=== PATIENT | female | born 1945 | race Caucasian/White ===

== ENCOUNTER 2019-04-07 04:39 | Inpatient (IN) | payer MEDICARE, OTHER ==
[2019-04-07] VITALS (28 sets, daily range): BP systolic 76–129; BP diastolic 33–63; BMI 32.5
[~2019-04-07] VITALS: Ht 170.2 cm; Wt 99.5 kg
--- NOTE | 2019-04-07 04:40 | NUR ---
PT TO E-10. PT VERY SOB, DIAPHORETIC. RECEIVING DUONEB. SL TO LEFT AC INTACT-20G. PT VERY SOB. ABG'S CALLED FOR.
--- NOTE | 2019-04-07 05:05 | NUR ---
PT MOVED TO T3. SET UP FOR INTUBATION.
--- NOTE | 2019-04-07 05:20 | NUR ---
PT PREPARED TO INTUBATE PER DR. DAVIDSON. R/T AT BEDSIDE.
[2019-04-07 05:30] LABS: BASOPHILS 0.3 % (0-2); EOSINOPHILS 2.2 % (0-7); HEMATOCRIT 43.3 % (36.0-48.0); HEMOGLOBIN 12.9 g/dL (12-16); IMMATURE GRANULOCYTES 0.3 % (0-5); LYMPHOCYTES 21.1 % (15-50); MCH 25.8 pg (26.0-34.0); MCHC 29.8 g/dL (31.0-37.0); MCV 86.6 fL (80.0-100.0); MEAN PLATELET VOLUME 11.2 fL (7.4-10.4); MONOCYTES 7.1 % (2-11); PLATELET COUNT 345 10x3/uL (130-400); RDW 18.2 % (11.5-14.5); WBC 14.9 10x3/uL (4.8-10.8)
--- NOTE | 2019-04-07 05:30 | NUR ---
PT INTUBATED PER DR. DAVIDSON WITH 7.5 E.T TUBE. POSITIVE COLOR CHANGE. GOOD BREATH SOUNDS BILATERALLY. CXR OBTAINED.
--- NOTE | 2019-04-07 05:35 | NUR ---
PT BEGINNING TO MOVE AND TRY TO PULL LINES. ORDER FOR NON-VIOLENT RESTRAINTS RECEIVED AND BILATERAL SOFT WRIST RESTRAINTS APPLIED. FLOW SHEET BEGAN.
[2019-04-07 05:44] LABS: CALC OSMOLALITY 296 mosm/kg (275-300); CALCIUM 8.6 mg/dL (8.5-10.1); CARBON DIOXIDE 25.6 mmol/L (21.0-32.0); CHLORIDE - SERUM 109 mmol/L (98-107); CREATININE - SERUM 0.8 mg/dL (0.6-1.3); GLUCOSE 282 mg/dL (74-106); POTASSIUM - SERUM 4.5 mmol/L (3.5-5.1); SODIUM 142 mmol/L (136-145); UREA NITROGEN 23 mg/dL (7-18); eGFR NON AFRICAN AMERICAN 74 mL/min (90-120)
[2019-04-07 05:46] LABS: APTT 31.9 SECONDS (22.8-39.4); INR 1.06 (0.85-1.17); PROTIME 13.3 SECONDS (11.6-15.0)
--- NOTE | 2019-04-07 05:50 | NUR ---
PT GIVEN 1LITER BOLUS FOR HYPOTENSION.
--- NOTE | 2019-04-07 05:50 | NUR ---
MOVED ETT FROM 23 CM AT LIP TO 25 CM AT LIP PER LETY ORDER
[2019-04-07 05:58] LABS: ALBUMIN 3.1 g/dL (3.4-5.0); ALKALINE PHOSPHATASE 123 U/L (46-116); ALT (SGPT) 84 U/L (10-68); BILIRUBIN - TOTAL 0.73 mg/dL (0.2-1.3); CKMB 1.8 U/L (0.0-3.6); CREATINE KINASE 114 UL (21-215); PRO BNP 1778 pg/mL (0-125); PROTEIN - SERUM 7.1 g/dL (6.4-8.2); TROPONIN-I 0.027 ng/mL (0.000-0.060)
--- NOTE | 2019-04-07 06:10 | NUR ---
PT MOVING AND FIGHTING TUBE. ETOMIDATE ORDERED PER DR DAVIDSON- GIVEN.
--- NOTE | 2019-04-07 06:40 | NUR ---
PT STILL MOVING SOME AND FIGHTING TUBE. FENTANYL 25MCG GIVEN. PT HAS DIPRIVAN INFUSING AT 10MCG/KG/MIN.
--- NOTE | 2019-04-07 06:40 | NUR ---
DENTURES AND HOUSESHOES TO GRANDDAUGHTER.
--- NOTE | 2019-04-07 07:16 | NUR ---
REPORT TO DWAIN PENNINGTON RN.
--- NOTE | 2019-04-07 08:00 | NUR ---
received from ER PER STRETCHER. AWAKE AND ALERT OBEYING COMMANDS. ETT SECURE TO VENT. SKIN WARM AND DRY. DIPRIVAN GTT AT 10 MCG/KG/MIN PER RIGHT FOREARM NO REDNESS OR SWELLING NOTED. MONITOR SR. DENIES PAIN. LEFT AC SALINE LOCK IV. TURNER CATH PATENT DRAINING CLOUDY YELLOW URINE.
--- NOTE | 2019-04-07 09:00 | NUR ---
OG INSERTED WITHOUT DIFFICULTY PATIENT SWALLOWED AND ASSISTED WITH INSERTION. AIR BOLUS AUDIBLE IN ABD. TOLERATED WELL. TO LOW INTERMITTENT SUCTION. NS STARTED IN LEFT AC IV. NO SWELLING OR REDNESS NOTED. ALERT OBEYING COMMANDS. FAMILY HERE UPDATE GIVEN.
[2019-04-07 09:28] LABS: % SATURATION 9 % (15-55); IRON 37 ug/dl (35-150); TOTAL IRON BIND CAPACITY 372 ug/dl (260-445); UNSAT IRON BIND CAPACITY 335 ug/dl (150-375)
[2019-04-07] MEDS ORDERED: FUROSEMIDE40 MG PO (09:30)
[2019-04-07] MEDS ORDERED: COREG 3.1253.125 MG PO (09:31)
[2019-04-07] MEDS ORDERED: TOUJEO SOL300 UNIT/1 SC (09:31)
[2019-04-07] MEDS ORDERED: VIBRAMYCIN 100100 MG PO (09:32)
[2019-04-07] MEDS ORDERED: K-TAB10 MEQ PO (09:34)
[2019-04-07] MEDS ORDERED: ENTRESTO 49 MG1 EACH PO (09:35)
[2019-04-07] MEDS ORDERED: BAYER CHEWABLE81 MG PO (09:36)
[2019-04-07] MEDS ORDERED: ALENDRONATE SODI5 MG PO (09:36)
[2019-04-07] MEDS ORDERED: LIPITOR10 MG PO (09:37)
[2019-04-07] MEDS ORDERED: VITAMIN D5000 UNIT PO (09:37)
[2019-04-07] MEDS ORDERED: FARXIGA10 MG PO (09:38)
[2019-04-07] MEDS ORDERED: PEPCID AC20 MG PO (09:38)
[2019-04-07] MEDS ORDERED: FISH OIL 1,0001 CA1 PO (09:39)
[2019-04-07] MEDS ORDERED: MIRALAX17 GM PO (09:42)
[2019-04-07] MEDS ORDERED: SINGULAIR10 MG PO (09:42)
--- NOTE | 2019-04-07 10:00 | NUR ---
REPOSITIONED IN BED. PATIENT HELPING WITH TURNING SELF TO SIDE.
--- NOTE | 2019-04-07 11:30 | NUR ---
DR. CASTILLO HERE AND DR. SIDDIQI. ORDERS NOTED. CALLED RICKI AT HOME OBTAINED PHONE CONSENT FOR BRONCHOSCOPY.QUESTIONS ANSWERED. TALKED WITH DR. CASTILLO ON THE PHONE.
--- NOTE | 2019-04-07 12:00 | NUR ---
BRONCHOSCOPY PERFORMED PER DR. CASTILLO. PATIENT TOLERATED WELL NO DISTRESS. VITAL SIGNS STABLE. FAMILY HERE UPDATE GIVEN PER DR. CASTILLO
--- NOTE | 2019-04-07 13:00 | NUR ---
REPOSITONED IN BED. HEAD OF BED ELEVATED. INCREASING FENTANYL TO ALLOW PATIENT TO BE ABLE TO REST. ETT GAUGING PATIENT MAKES HER FELL LIKE SHE NEEDS TO COUGH. PATIENT COOPERATIVE. WRITING NOTES, AND LETTERS ON HER HAND TO COMMUNICATE.
--- NOTE | 2019-04-07 14:00 | NUR ---
NAPPING AT INTERVALS RESTING MORE COMFORTABLE. AWAKES EASILY. NO DISTRESS
[2019-04-07 14:04] LABS: APPEARANCE CLEAR (CLEAR); BILIRUBIN NEGATIVE (NEGATIVE); COLOR YELLOW (YELLOW); GLUCOSE 1000 mg/dL (NEGATIVE); KETONE NEGATIVE (NEGATIVE); NITRITE NEGATIVE (NEGATIVE); PROTEIN NEGATIVE (NEGATIVE); UROBILINOGEN NORMAL (NORMAL); WHITE CELLS - URINE 0-5 /hpf (NEGATIVE)
[2019-04-07 14:05] LABS: BACTERIA FEW /hpf (NEGATIVE); MUCUS <1+ /lpf (NONE SEEN)
--- NOTE | 2019-04-07 15:00 | NUR ---
REPOSITIONED. RETURNS TO SLEEP EASILY. HELPED TURNED SELF TO SIDE. NODES HEAD TO YES AND NO QUESTIONS. MONITOR SR.
--- NOTE | 2019-04-07 17:30 | NUR ---
REPOSITIONED. PATIENT TURNING SELF. ALERT ABLE TO MAKE NEEDS KNOWN. FAMILY HERE UPDATE GIVEN. FENTANYL AT 200 MCG/HOUR. NS AT 50 ML HOUR PER LEFT AC NO REDNESS OR SWELLING. TURNER CATH PATENT. MONITOR SR. NO DISTRESS. GOOD COUGH. SUCTIONED LARGE AMOUNT CLEAR SECRETIONS PER ETT AND ORALLY.
[2019-04-08] VITALS (24 sets, daily range): BP systolic 105–139; BP diastolic 48–63; Ht 170.2 cm; Wt 99.5 kg
[2019-04-08 04:22] LABS: BASOPHILS 0.1 % (0-2); EOSINOPHILS 0 % (0-7); IMMATURE GRANULOCYTES 0.1 % (0-5); LYMPHOCYTES 9.3 % (15-50); MCH 25.1 pg (26.0-34.0); MCHC 29.4 g/dL (31.0-37.0); MCV 85.3 fL (80.0-100.0); MEAN PLATELET VOLUME 11.4 fL (7.4-10.4); MONOCYTES 3.8 % (2-11); NEUTROPHILS 86.7 % (40-80); RDW 17.8 % (11.5-14.5)
[2019-04-08 04:36] LABS: HEMATOCRIT 33.7 % (36.0-48.0); HEMOGLOBIN 9.9 g/dL (12-16); PLATELET COUNT 240 10x3/uL (130-400); RBC 3.95 10x6/uL (4.00-5.40); WBC 7.7 10x3/uL (4.8-10.8)
[2019-04-08 05:11] LABS: ALBUMIN 2.5 g/dL (3.4-5.0); ANION GAP 11.1 mmol/L (8-16); BILIRUBIN - TOTAL 0.76 mg/dL (0.2-1.3); CALCIUM 8.1 mg/dL (8.5-10.1); MAGNESIUM - SERUM 1.8 mg/dL (1.8-2.4); PHOSPHOROUS 3.6 mg/dL (2.5-4.9); POTASSIUM - SERUM 4.1 mmol/L (3.5-5.1); PROTEIN - SERUM 5.6 g/dL (6.4-8.2)
[2019-04-08 05:12] LABS: TROPONIN-I 1.731 ng/mL (0.000-0.060)
--- NOTE | 2019-04-08 05:15 | NUR ---
PT STATES THAT SHE WANTS TO WAIT TO GET HER BATH DURING THE DAY WITH A FEMALE NURSE.
--- NOTE | 2019-04-08 07:30 | NUR ---
REPORT RECEIVED. ASSESSMENT COMPLETE PER FLOW SHEET. PT AWAKE COMFORTABLE AT THIS TIME, ORAL CARE PROVIDED PER REQUEST. FAMILY AT BEDSIDE UPDATE GIVEN. NEEDS MET WILL CONTINUE TO MONITOR
--- NOTE | 2019-04-08 11:15 | NUR ---
REASSESSMENT COMPLETE PER FLOW SHEET. VSS. NO NEW CHANGES WILL CONTINUE TO MONITOR
--- NOTE | 2019-04-08 11:58 | NUR ---
DR CASTILLO AT BEDSIDE GIVEN UDPATE NEW ORDERS RECEIVED
--- NOTE | 2019-04-08 15:00 | NUR ---
REASSESSMENT COMPLETE PER FLOW SHEET. VSS. NO NEW CHANGES WILL CONTINUE TO MONITOR
--- NOTE | 2019-04-08 18:46 | MORECARE ---
CASE MANAGEMENT DISCHARGE SUMMARY PATIENT: JACINDA HARPER UNIT: [id number] ADM DATE: 04/07/19 AGE: 74 : 45 SEX: F ROOM/BED: D.2307 AUTHOR: CORY LISA PHYSICIAN: REFERRING PHYSICIAN: YULY SIDDIQI MD DATE OF SERVICE: 04/08/19 Discharge Plan Patient Name: JACINDA HARPER Facility: [facility]:[place] : 1945 Planned Disposition: Home Anticipated Discharge Date: Discharge Date: Expected LOS: Initial Reviewer: [email or web address] Initial Review Date: 04/08/2019 Generated: 04/08/19 7:46 pm Patient Name: JACINDA HARPER Page 07483 at 1846 All edits/amendments must be made on the electronic document DICTATION DATE: 04/08/191845 SYNTHETIC SOIL BLOCKS PULPER: LISA 04/08/191845 RPT#: [id number] [place] DATE: STATUS: ADM IN [facility] [address] [place] [address] END OF REPORT
--- NOTE | 2019-04-08 18:54 | MORECARE ---
CASE MANAGEMENT DISCHARGE SUMMARY PATIENT: JACINDA HARPER UNIT: [id number] ADM DATE: 04/07/19 AGE: 74 : 45 SEX: F ROOM/BED: D.2307 AUTHOR: MARIA L,DOC PHYSICIAN: REFERRING PHYSICIAN: YULY SIDDIQI MD DATE OF SERVICE: 04/08/19 Discharge Plan Patient Name: JACINDA HARPER Facility: [facility]:[place] : 1945 Planned Disposition: Home Anticipated Discharge Date: Discharge Date: Expected LOS: Initial Reviewer: [email or web address] Initial Review Date: 04/08/2019 Generated: 04/08/19 7:54 pm Comments DCP- Discharge Planning Updated by [email or web address]: Valentine Dickson on 04/08/19 5:[address] Patient Name: JACINDA HARPER Admission Status: Elective Accout number: [id number] Admission Date: 04-07-2019 : 1945 Admission Diagnosis: Attending: YULY SIDDIQI Current LOS: 1 Anticipated DC Date: Planned Disposition: Home Primary Insurance: MEDICARE A & B Discharge Planning Comments: CM met with patient to complete initial dc planning assessment. CM educated patient on the CM role and verbal consent given by patient to complete assessment. Patient lives at home with her where she is independent with her care. At discharge patient plans to return home and feels this is a safe discharge. CM discussed availability of home health, rehab services, and medical equipment. Her daughter will be her airport driver home. Patient has a nebulizer ( can't remember provider) Patient denied known discharge needs at this time. CM will continue to follow and will assist as needed with dc plans/needs. Bookstore Clerk: Valentine Dickson DCPIA - Discharge Planning Initial Assessment Updated by [email or web address]: Valentine Dickson on 04/08/19 6:48 pm * Is the patient Alert and Oriented? Yes * How many steps to enter\exit or inside your home? * PCP KWASI * Pharmacy [facility] * Preadmission Environment Home with Family * ADLs Independent * Equipment Nebulizer * List name and contact numbers for known caregivers / representatives who currently or will assist patient after discharge: ECHO HARPER - DAUGHTER - [phone], * Verbal permission to speak to the caregivers and representatives has been obtained from the patient. Yes * Community resources currently utilized None * Additional services required to return to the preadmission environment? No * Can the patient safely return to the preadmission environment? Yes * Has this patient been hospitalized within the prior 30 days at any hospital? No Last DP export: 04/08/19 5:46 Patient Name: JACINDA HARPER Page [phone] at 1854 All edits/amendments must be made on the electronic document DICTATION DATE: 04/08/191853 BUILD AND RELEASE MANAGER: LISA 04/08/191853 RPT#: [id number] MT DATE: STATUS: ADM IN [facility] [address] [place] [address] END OF REPORT
--- NOTE | 2019-04-08 19:15 | NUR ---
REPORT RECEIEVED, PT SITTING UP IN BED, AAOX4. PT ON 2L O2 VIA NC, TURNER IN PLACE. LT AC PIV, RT FOREARM PIV, SEE FLOWSHEET. ASSESSMENT COMPLETED, SEE FLOWSHEET. WILL CONTINUE WITH PLAN OF CARE.
--- NOTE | 2019-04-08 21:00 | NUR ---
PT SITTING UP IN BED, NO ACUTE DISTRESS NOTED.
--- NOTE | 2019-04-08 23:00 | NUR ---
PT SITTING UP IN BED, AAOX4. VITALS STABLE, WILL CONTINUE TO MONITOR.
[2019-04-09] VITALS (15 sets, daily range): BP systolic 97–148; BP diastolic 43–71
--- NOTE | 2019-04-09 01:00 | NUR ---
PT LAYING IN BED, NO NEEDS VOICED AT THIS TIME.
--- NOTE | 2019-04-09 03:00 | NUR ---
PT REPOSITIONED TO LEFT SIDE. VITALS STABLE.
[2019-04-09 04:26] LABS: BASOPHILS 0 % (0-2); EOSINOPHILS 0 % (0-7); HEMATOCRIT 32.5 % (36.0-48.0); HEMOGLOBIN 9.6 g/dL (12-16); IMMATURE GRANULOCYTES 0.4 % (0-5); LYMPHOCYTES 8.2 % (15-50); MCH 25.2 pg (26.0-34.0); MCHC 29.5 g/dL (31.0-37.0); MCV 85.3 fL (80.0-100.0); NEUTROPHILS 80.4 % (40-80); PLATELET COUNT 235 10x3/uL (130-400); RBC 3.81 10x6/uL (4.00-5.40); RDW 18.3 % (11.5-14.5); WBC 8.4 10x3/uL (4.8-10.8)
--- NOTE | 2019-04-09 05:00 | NUR ---
PT SITTING UP IN CHAIR, FULL LINEN CHANGE AND BATH GIVEN.
[2019-04-09 05:01] LABS: ALBUMIN 2.6 g/dL (3.4-5.0); ANION GAP 11.4 mmol/L (8-16); BILIRUBIN - TOTAL 0.73 mg/dL (0.2-1.3); CALCIUM 8.3 mg/dL (8.5-10.1); CARBON DIOXIDE 25.3 mmol/L (21.0-32.0); CREATININE - SERUM 0.8 mg/dL (0.6-1.3); POTASSIUM - SERUM 3.7 mmol/L (3.5-5.1); PROTEIN - SERUM 5.9 g/dL (6.4-8.2)
[2019-04-09 05:11] LABS: TROPONIN-I 0.905 ng/mL (0.000-0.060)
--- NOTE | 2019-04-09 07:00 | NUR ---
REPORT RECEIVED FROM THE OFF GOING RN. SEE ASSESSMENT IN THE PT FLOW SHEET. PT SITTING OOB IN THE BEDSIDE CHAIR. 2L VIA NC. VSS. CALL LIGHT IN REACH. WILL CONT POC.
--- NOTE | 2019-04-09 08:30 | NUR ---
DR JEN MAURICIO. FULL LIQUID DIET ORDERED.
--- NOTE | 2019-04-09 10:36 | NUR ---
PT ASSISTED TO THE BSC AND HAD A LARGE FORMED BM. PT PERFORMED SELF PERICARE. WILL CONT POC.
--- NOTE | 2019-04-09 12:23 | NUR ---
DR CASTILLO AND DR LI AT THE PTS BEDSIDE. SEE ORDERS.
--- NOTE | 2019-04-09 12:55 | NUR ---
REGULAR TEXTURE TRAY ORDERED PER DR LI
--- NOTE | 2019-04-09 15:00 | NUR ---
PHSSANGEETHA THEANN AT THE PTS BEDSIDE. ASSISTED HER BACK INTO BED. VSS. WILL CONT POC.
[2019-04-09 16:08] LABS: ACID FAST SMEAR Negative (()); AFB SPECIMEN PROCESSING Concentration (())
--- NOTE | 2019-04-09 19:00 | NUR ---
SHIFT ASSESSMENT COMPLETE. PT IS A&O X4 WITH NO COMPLAINTS OF PAIN OR DISCOMFORT AT THIS TIME. SHE IS SITTING UP IN BED WATCHING TV. PERRLA, 3 MM, BRISK REACTION TO LIGHT, STRONG AND EQUAL HAND TELEMARKETING FUNDRAISER AND FOOT PUMPS. RR EVEN AND UNLABORED, 2 L/MIN VIA NC, CLEAR BREATH SOUNDS HEARD BILAT ALL LOBES. S1S2 AUDIBLE, HR 90 BPM NSR SHOWING ON MONITOR. TIGHT PARAMETERS SET ON ICU MONITORS. ABD SOFT AND NONTENDER TO TOUCH, BS ACTIVE X4. R FA PIV INFUSING NS @ 50 ML/HR. TURNER CATH DRAINING CLEAR YELLOW URINE. SCDS ON AND FUNCTIONING. RADIAL AND PEDAL PULSES PALP. CALL LIGHT IN REACH, REMOVED DINNER TRAY PER REQUEST. NO FURTHER NEEDS AT THIS TIME. WILL CONT TO MONITOR CLOSELY. SEE FLOWSHEET FOR FURTHER DETAILS.
--- NOTE | 2019-04-09 21:00 | NUR ---
FSBS 312, 12 UN INSULIN ADMIN PER SLIDING SCALE. REPOSITIONED FOR COMFORT. PM MEDS GIVEN WITHOUT DIFFICUTLY. SHE DENIES ANY NEEDS AT THIS TIME. WILL CONT TO MONITOR CLOSELY.
--- NOTE | 2019-04-09 23:30 | NUR ---
PT WOKE UP IN A PANIC. SHE STATES THAT SHE WAS WRAPPED IN THE MONITOR CORDS AND GOT EXTREMELY ANXIOIUS. ASSISTED PT TO CHAIR, GAIT STEADY, SHE IS IN GOOD SPIRITS AT THIS TIME AND PLAYING A GAME ON HER TABLET. VSS. CALL LIGHT IN REACH, WILL CONT TO MONITOR CLOSELY.
--- NOTE | 2019-04-10 01:27 | NUR ---
PATIENT ARRIVED FROM THE ICU. PATIENT TRANSPORTED VIA WHEELCHAIR. PATIENT IS ALERT AND ORIENTED, SITTING UP IN CHAIR. NO S/S OF DISTRESS. NO C/O PAIN. CALL LIGHT WITHIN REACH. WILL CPOC.
[2019-04-10 04:31] VITALS: BP 98/47
[2019-04-10 05:11] LABS: BASOPHILS 0.2 % (0-2); EOSINOPHILS 0.6 % (0-7); HEMATOCRIT 32.3 % (36.0-48.0); HEMOGLOBIN 9.6 g/dL (12-16); IMMATURE GRANULOCYTES 0.2 % (0-5); LYMPHOCYTES 13.6 % (15-50); MCH 25.3 pg (26.0-34.0); MCHC 29.7 g/dL (31.0-37.0); MCV 85.2 fL (80.0-100.0); MEAN PLATELET VOLUME 10.9 fL (7.4-10.4); MONOCYTES 9.9 % (2-11); NEUTROPHILS 75.5 % (40-80); PLATELET COUNT 242 10x3/uL (130-400); RBC 3.79 10x6/uL (4.00-5.40); RDW 18.4 % (11.5-14.5); WBC 10.3 10x3/uL (4.8-10.8)
[2019-04-10 05:32] LABS: CALC OSMOLALITY 286 mosm/kg (275-300); CALCIUM 8.6 mg/dL (8.5-10.1); CHLORIDE - SERUM 110 mmol/L (98-107); CREATININE - SERUM 0.7 mg/dL (0.6-1.3); GLUCOSE 63 mg/dL (74-106); MAGNESIUM - SERUM 2.1 mg/dL (1.8-2.4); PHOSPHOROUS 2.2 mg/dL (2.5-4.9); POTASSIUM - SERUM 3.5 mmol/L (3.5-5.1); SODIUM 143 mmol/L (136-145); UREA NITROGEN 24 mg/dL (7-18); eGFR NON AFRICAN AMERICAN 87 mL/min (90-120)
[2019-04-10 08:00] VITALS: BP 108/37
--- NOTE | 2019-04-10 08:09 | MORECARE ---
CASE MANAGEMENT DISCHARGE SUMMARY PATIENT: JACINDA HARPER UNIT: [id number] ADM DATE: 04/07/19 AGE: 74 : 45 SEX: F ROOM/BED: D.9306 AUTHOR: MARIA LDOC PHYSICIAN: REFERRING PHYSICIAN: YULY SIDDIQI MD DATE OF SERVICE: 04/10/19 Discharge Plan Patient Name: JACINDA HARPER Facility: [facility]:[place] : 1945 Planned Disposition: Home Anticipated Discharge Date: Discharge Date: Expected LOS: Initial Reviewer: [email or web address] Initial Review Date: 04/08/2019 Generated: 04/10/19 9:09 am Comments DCP- Discharge Planning Updated by [email or web address]: Valentine Dickson on 04/08/19 5:[address] Patient Name: JACINDA HARPER Admission Status: Elective Accout number: [id number] Admission Date: 04-07-2019 : 1945 Admission Diagnosis: Attending: YULY SIDDIQI Current LOS: 1 Anticipated DC Date: Planned Disposition: Home Primary Insurance: MEDICARE A & B Discharge Planning Comments: CM met with patient to complete initial dc planning assessment. CM educated patient on the CM role and verbal consent given by patient to complete assessment. Patient lives at home with her where she is independent with her care. At discharge patient plans to return home and feels this is a safe discharge. CM discussed availability of home health, rehab services, and medical equipment. Her daughter will be her grab driver home. Patient has a nebulizer ( can't remember provider) Patient denied known discharge needs at this time. CM will continue to follow and will assist as needed with dc plans/needs. Floor Scraper: Valentine Dickson DCPIA - Discharge Planning Initial Assessment Updated by [email or web address]: Valentine Dickson on 04/08/19 6:48 pm * Is the patient Alert and Oriented? Yes * How many steps to enter\exit or inside your home? * PCP V[facility]ALPANDO * [facility]acy [facility] * Preadmission Environment Home with Family * ADLs Independent * Equipment Nebulizer * List name and contact numbers for known caregivers / representatives who currently or will assist patient after discharge: ECHO HARPER - DAUGHTER - [phone], * Verbal permission to speak to the caregivers and representatives has been obtained from the patient. Yes * Community resources currently utilized None * Additional services required to return to the preadmission environment? No * Can the patient safely return to the preadmission environment? Yes * Has this patient been hospitalized within the prior 30 days at any hospital? No Last DP export: 04/08/19 5:54 Patient Name: JACINDA HARPER Page [phone] at 0809 All edits/amendments must be made on the electronic document DICTATION DATE: 04/10/19808 WOOL MIXER: LISA 04/10/19808 RPT#: [id number] DC DATE: STATUS: ADM IN [facility] [address] [place] [address] END OF REPORT
--- NOTE | 2019-04-10 08:40 | NUR ---
IV RESTARTED TO RIGHT WRIST BY ALYSSA DIAZ AND FLUSHED WITH NS. LINE IS PATENT.
--- NOTE | 2019-04-10 09:28 | NUR ---
UP AMBULATING WITH PT ASSIST.
[2019-04-10 12:00] VITALS: BP 122/43
[2019-04-10 12:09] LABS: FUNGUS STAIN Final report (())
--- NOTE | 2019-04-10 13:45 | NUR ---
Nutrition Follow-up: Transferred from ICU. Eating lunch at time of visit. Reports good appetite and that she ate majority of breakfast this AM. Diet: Diabetic with Glucerna Wt: 216# Last BM: 04/09 Labs noted: Glu 63, PO4 2.2 Meds noted: Prednisone, Humulin, KDur, NS @ 50, Lasix -May consider cardiac diabetic diet. -RD following.
[2019-04-10 16:00] VITALS: BP 107/40
[2019-04-10 20:21] VITALS: BP 97/39
[2019-04-11 00:13] VITALS: BP 111/39
--- NOTE | 2019-04-11 01:50 | NUR ---
PIV INFILTRATED. RESTARTED A NEW PIV ON L.HAND 20G X1 STICK. IV VANC INFUSING. WILL CPOC.
[2019-04-11 04:45] VITALS: BP 116/47
[2019-04-11 05:09] LABS: BASOPHILS 0.1 % (0-2); EOSINOPHILS 0.7 % (0-7); HEMATOCRIT 32.4 % (36.0-48.0); HEMOGLOBIN 9.6 g/dL (12-16); IMMATURE GRANULOCYTES 0.2 % (0-5); LYMPHOCYTES 14.2 % (15-50); MCH 25.1 pg (26.0-34.0); MCHC 29.6 g/dL (31.0-37.0); MCV 84.8 fL (80.0-100.0); MEAN PLATELET VOLUME 11.6 fL (7.4-10.4); NEUTROPHILS 71.8 % (40-80); PLATELET COUNT 250 10x3/uL (130-400); RBC 3.82 10x6/uL (4.00-5.40); WBC 9.1 10x3/uL (4.8-10.8)
[2019-04-11 05:21] LABS: CALC OSMOLALITY 286 mosm/kg (275-300); CALCIUM 8.4 mg/dL (8.5-10.1); CARBON DIOXIDE 28.2 mmol/L (21.0-32.0); CHLORIDE - SERUM 106 mmol/L (98-107); CREATININE - SERUM 0.7 mg/dL (0.6-1.3); PHOSPHOROUS 2.1 mg/dL (2.5-4.9); POTASSIUM - SERUM 3.6 mmol/L (3.5-5.1); SODIUM 140 mmol/L (136-145); UREA NITROGEN 19 mg/dL (7-18); eGFR NON AFRICAN AMERICAN 87 mL/min (90-120)
[2019-04-11 05:22] LABS: GLUCOSE 209 mg/dL (74-106)
--- NOTE | 2019-04-11 07:51 | NUR ---
ALERT AND ORIENTED. UP IN BEDSIDE CHAIR. TELEMERTY SHOWS SR. 89. IV ON NS AT 50 IFUSING INTO LEFT HAND. TURNER CATH PATENT TO GRAVITY BAG. DENIES ANY NEEDS.CALL LIGHT IN REACH. WILL MONITOR
[2019-04-11 09:36] VITALS: BP 117/46
--- NOTE | 2019-04-11 09:41 | NUR ---
I have reviewed this patient and I concur with the Shift Assessment completed by the Licensed Practical Nurse today this shift.
[2019-04-11 13:17] VITALS: BP 126/49
--- NOTE | 2019-04-11 14:12 | NUR ---
TURNER REMOVED WITHOUT DIFFICULTY. PT UP TO BR. NO NEEDS VOICED. WILL MONITOR
--- NOTE | 2019-04-11 16:03 | MORECARE ---
CASE MANAGEMENT DISCHARGE SUMMARY PATIENT: JACINDA HARPER UNIT: [id number] ADM DATE: 04/07/19 AGE: 74 : 45 SEX: F ROOM/BED: D.3643 AUTHOR: MARIA LDOC PHYSICIAN: REFERRING PHYSICIAN: YULY SIDDIQI MD DATE OF SERVICE: 04/11/19 Discharge Plan Patient Name: JACINDA HARPER Facility: [facility]:[place] : 1945 Planned Disposition: Home Anticipated Discharge Date: Discharge Date: Expected LOS: Initial Reviewer: [email or web address] Initial Review Date: 04/08/2019 Generated: 04/11/19 5:03 pm Comments DCP- Discharge Planning Updated by [email or web address]: Darnell Stewart on 04/11/19 2:[address] Patient Name: JACINDA HARPER Encounter No: [id number] : 1945 Primary Insurance: MEDICARE A & B Anticipated DC Date: Planned Disposition: Home : DCP follow-up note: CM RECEIVED OXYGEN TESTING, PT WAS 96% ON ROOM AIR AT REST, 95% ON ROOM AIR DURING EXERTION. PT DID NOT QUALIFY FOR HOME AND PORTABLE OXYGEN. PT PLANS TO DISCHARGE HOME WITH SPOUSE WITH NO ANTICIPATED NEEDS AT THIS TIME. CM TO FOLLOW AND ASSIST NEEDED. MANDI Sánchez DCP- Discharge Planning Updated by [email or web address]: Valentine Dickson on 04/08/19 5:[address] Patient Name: JACINDA HARPER Admission Status: Elective Accout number: [id number] Admission Date: 04-07-2019 : 1945 Admission Diagnosis: Attending: YULY SIDDIQI Current LOS: 1 Anticipated DC Date: Planned Disposition: Home Primary Insurance: MEDICARE A & B Discharge Planning Comments: CM met with patient to complete initial dc planning assessment. CM educated patient on the CM role and verbal consent given by patient to complete assessment. Patient lives at home with her where she is independent with her care. At discharge patient plans to return home and feels this is a safe discharge. CM discussed availability of home health, rehab services, and medical equipment. Her daughter will be her chuck wagon driver home. Patient has a nebulizer ( can't remember provider) Patient denied known discharge needs at this time. CM will continue to follow and will assist as needed with dc plans/needs. Line Service Attendant: Valentine Dickson DCPIA - Discharge Planning Initial Assessment Updated by [email or web address]: Valentine Dickson on 04/08/19 6:48 pm * Is the patient Alert and Oriented? Yes * How many steps to enter\exit or inside your home? * PCP [facility]O * Pharmacy [facility] * Preadmission Environment Home with Family * ADLs Independent * Equipment Nebulizer * List name and contact numbers for known caregivers / representatives who currently or will assist patient after discharge: ECHO HARPER - DAUGHTER - [phone], * Verbal permission to speak to the caregivers and representatives has been obtained from the patient. Yes * Community resources currently utilized None * Additional services required to return to the preadmission environment? No * Can the patient safely return to the preadmission environment? Yes * Has this patient been hospitalized within the prior 30 days at any hospital? No Last DP export: 04/10/19 7:09 Patient Name: JACINDA HARPER Page [phone] at 1603 All edits/amendments must be made on the electronic document DICTATION DATE: 04/11/19 160 PAEDIATRIC SURGEON: LISA 04/11/19 160 RPT#: [id number] [place] DATE: STATUS: ADM IN [facility] [address] [place] [address] END OF REPORT
[2019-04-11 17:27] VITALS: BP 103/38
--- NOTE | 2019-04-11 19:26 | NUR ---
RECEIVED BEDSIDE REPORT. PATIENT IS ALERT AND ORIENTED, RESTING COMFORTABLY IN BED. RESPIRATIONS ARE EVEN AND UNLABORED. NO S/S OF DISTRESS. NO C/O PAIN. CALL LIGHT WITHIN REACH. WILL CPOC.
[2019-04-11 20:00] VITALS: BP 112/40
[2019-04-12] VITALS: BP 119/39
[2019-04-12 04:00] VITALS: BP 122/48
[2019-04-12 05:32] LABS: BASOPHILS 0.1 % (0-2); EOSINOPHILS 1.7 % (0-7); HEMATOCRIT 32.5 % (36.0-48.0); HEMOGLOBIN 9.7 g/dL (12-16); IMMATURE GRANULOCYTES 0.3 % (0-5); LYMPHOCYTES 20.4 % (15-50); MCH 25.3 pg (26.0-34.0); MCHC 29.8 g/dL (31.0-37.0); MCV 84.9 fL (80.0-100.0); MEAN PLATELET VOLUME 11.1 fL (7.4-10.4); MONOCYTES 11.1 % (2-11); NEUTROPHILS 66.4 % (40-80); PLATELET COUNT 217 10x3/uL (130-400); RBC 3.83 10x6/uL (4.00-5.40); RDW 18.2 % (11.5-14.5); WBC 7.2 10x3/uL (4.8-10.8)
[2019-04-12 06:15] LABS: CALC OSMOLALITY 285 mosm/kg (275-300); CALCIUM 8.9 mg/dL (8.5-10.1); CARBON DIOXIDE 28.2 mmol/L (21.0-32.0); CHLORIDE - SERUM 107 mmol/L (98-107); CREATININE - SERUM 0.7 mg/dL (0.6-1.3); GLUCOSE 177 mg/dL (74-106); PHOSPHOROUS 2.5 mg/dL (2.5-4.9); POTASSIUM - SERUM 3.4 mmol/L (3.5-5.1); PRO BNP 6389 pg/mL (0-125); SODIUM 141 mmol/L (136-145); UREA NITROGEN 16 mg/dL (7-18); eGFR NON AFRICAN AMERICAN 87 mL/min (90-120)
--- NOTE | 2019-04-12 07:14 | NUR ---
ALERT AND ORIENTED. TELEMERTY SHOWS NORMAL SR AT 77.RIGHT HAND SL. UP AB DI. DENIES ANY NEEDS. SR UP TIMES 1 WITH CALL LIGHT IN REACH
[2019-04-12 09:51] VITALS: BP 114/36
[2019-04-12 13:19] VITALS: BP 102/38
--- NOTE | 2019-04-12 13:37 | NUR ---
I have reviewed this patient and I concur with the Shift Assessment completed by the Licensed Practical Nurse today this shift.
--- NOTE | 2019-04-12 17:43 | NUR ---
PT UP IN CHAIR. DR. CASTILLO AT BEDSIDE. DENIES ANY NEEDS. TELEMERTY SHOWS SB. IV RESITED TO LEFT FA. CALL LIGHT IN REACH.
[2019-04-12 18:06] VITALS: BP 102/38
[2019-04-12 20:00] VITALS: BP 116/51
[2019-04-13] VITALS: BP 109/52
[2019-04-13 04:00] VITALS: BP 116/55
[2019-04-13 05:33] LABS: BASOPHILS 0.1 % (0-2); EOSINOPHILS 1.1 % (0-7); HEMOGLOBIN 10.8 g/dL (12-16); IMMATURE GRANULOCYTES 0.3 % (0-5); LYMPHOCYTES 20.2 % (15-50); MCH 25.5 pg (26.0-34.0); MCV 85.1 fL (80.0-100.0); MEAN PLATELET VOLUME 11.4 fL (7.4-10.4); MONOCYTES 10.2 % (2-11); NEUTROPHILS 68.1 % (40-80); PLATELET COUNT 234 10x3/uL (130-400); RBC 4.23 10x6/uL (4.00-5.40); RDW 18.5 % (11.5-14.5); WBC 8.8 10x3/uL (4.8-10.8)
[2019-04-13 05:49] LABS: ANION GAP 12.5 mmol/L (8-16); CALCIUM 8.8 mg/dL (8.5-10.1); CARBON DIOXIDE 28.4 mmol/L (21.0-32.0); CREATININE - SERUM 0.8 mg/dL (0.6-1.3); MAGNESIUM - SERUM 1.9 mg/dL (1.8-2.4); PHOSPHOROUS 2.7 mg/dL (2.5-4.9); POTASSIUM - SERUM 3.9 mmol/L (3.5-5.1)
--- NOTE | 2019-04-13 08:10 | NUR ---
AM MEDS GIVEN AT THIS TIME, PT UP TO CHAIR, EATING BREAKFAST. PT DENIES ANY NEEDS AT THIS TIME. CALL LIGHT IN REACH, NAD NOTED, WILL CONTINUE TO MONITOR.
[2019-04-13 09:39] VITALS: BP 113/33
--- NOTE | 2019-04-13 11:50 | NUR ---
BLOOD SUGAR OF 265, 10UNITS OF INSULIN GIVEN PER S/S. ALSO GAVE TYLENOL FOR PAIN LEVEL OF 4/10. PT DENIES ANY OTHER NEEDS AT THIS TIME, CALL LIGHT IN REACH, NAD NOTED, WILL CONTINUE TO MONITOR.
[2019-04-13 13:40] VITALS: BP 110/44
--- NOTE | 2019-04-13 13:51 | NUR ---
PT UP TO CHAIR, DENIES ANY NEEDS AT THIS TIME. CALL LIGHT IN REACH, SPOUSE AT BEDSIDE, NAD NOTED, WILL CONTINUE TO MONITOR.
[2019-04-13 16:38] VITALS: BP 108/38
--- NOTE | 2019-04-13 19:49 | NUR ---
RECIEVED SITTING UP IN CHAIR WITH C/O BEING TIRED. FAMILY AT BEDSIDE AND IN THE BED. ALERT AND ORIENTED X4. UP AD DI. O2@ 2 LITERS PER N/C IN PLACE. GENERAALIZED EDEMA TO LOWER EXTREMITIES. IV TO LEFT FA SL.. TELEMETRY IN PLACE. REMAINS IN CONTACT ISOATION. DENIES ANY NEEDS AT THIS TIME.
[2019-04-13 20:00] VITALS: BP 146/52
[2019-04-14] VITALS: BP 146/52; BP 152/50
[2019-04-14 04:00] VITALS: BP 127/39
[2019-04-14 05:41] LABS: BASOPHILS 0.3 % (0-2); EOSINOPHILS 1.9 % (0-7); HEMATOCRIT 33.9 % (36.0-48.0); HEMOGLOBIN 10.2 g/dL (12-16); IMMATURE GRANULOCYTES 0.4 % (0-5); LYMPHOCYTES 20.6 % (15-50); MCH 25.8 pg (26.0-34.0); MCHC 30.1 g/dL (31.0-37.0); MCV 85.6 fL (80.0-100.0); MEAN PLATELET VOLUME 11.8 fL (7.4-10.4); MONOCYTES 11.4 % (2-11); NEUTROPHILS 65.4 % (40-80); PLATELET COUNT 228 10x3/uL (130-400); RBC 3.96 10x6/uL (4.00-5.40); RDW 18.4 % (11.5-14.5); WBC 7.8 10x3/uL (4.8-10.8)
[2019-04-14 06:01] LABS: CALC OSMOLALITY 283 mosm/kg (275-300); CALCIUM 8.7 mg/dL (8.5-10.1); CARBON DIOXIDE 29.9 mmol/L (21.0-32.0); CHLORIDE - SERUM 106 mmol/L (98-107); CREATININE - SERUM 0.6 mg/dL (0.6-1.3); MAGNESIUM - SERUM 1.8 mg/dL (1.8-2.4); PHOSPHOROUS 3.3 mg/dL (2.5-4.9); POTASSIUM - SERUM 3.4 mmol/L (3.5-5.1); SODIUM 143 mmol/L (136-145); UREA NITROGEN 15 mg/dL (7-18); eGFR NON AFRICAN AMERICAN > 90 mL/min (90-120)
[2019-04-14 06:03] LABS: GLUCOSE 67 mg/dL (74-106)
--- NOTE | 2019-04-14 07:20 | NUR ---
RECIEVE REPORT. RESTING IN BED WITH EYES CLOSED. NO SIGNS OF DISTRESS. CONTINUE PLAN OF CARE AND SAFETY PRECAUTIONS.
[2019-04-14 09:33] VITALS: BP 137/49
[2019-04-14 11:28] LABS: POTASSIUM - SERUM 4.1 mmol/L (3.5-5.1); VANCOMYCIN - TROUGH 19.6 ug/mL (10.0-20.0)
[2019-04-14 13:32] VITALS: BP 103/51
[2019-04-14] MEDS ORDERED: IPRAT-ALBUT 0.5-3 ML UPD (15:47)
[2019-04-14] MEDS ORDERED: SYMBICORT 16010.2 GM INH (15:47)
[2019-04-14] MEDS ORDERED: PROTONIX40 MG PO (15:51)
[2019-04-14] MEDS ORDERED: ALBUTEROL SULF8.5 GM INH (15:52)
[2019-04-14] MEDS ORDERED: PREDNISONE10 MG PO (15:55)
--- NOTE | 2019-04-14 16:46 | MORECARE ---
CASE MANAGEMENT DISCHARGE SUMMARY PATIENT: JACINDA HARPER UNIT: [id number] ADM DATE: 04/07/19 AGE: 74 : 45 SEX: F ROOM/BED: D.1606 AUTHOR: CORY LISA PHYSICIAN: REFERRING PHYSICIAN: YULY SIDDIQI MD DATE OF SERVICE: 04/14/19 Discharge Plan Patient Name: JACINDA HARPER Facility: [facility]:[place] : 1945 Planned Disposition: Home Anticipated Discharge Date: Discharge Date: Expected LOS: Initial Reviewer: [email or web address] Initial Review Date: 04/08/2019 Generated: 04/14/19 5:46 pm Comments DCP- Discharge Planning Updated by [email or web address]: Shira Villa on 04/14/19 3:[address] Patient Name: JACINDA HARPER Encounter No: [id number] : 1945 Primary Insurance: MEDICARE A & B Anticipated DC Date: Planned Disposition: Home External Planned Provider: : DCP follow-up note: Patient and family in agreement with discharge plan. No changes to plan. Case management will follow and assist as needed. Shira Villa DCP- Discharge Planning Updated by [email or web address]: Darnell Stewart on 04/11/19 2:[address] Patient Name: JACINDA HARPER Encounter No: [id number] : 1945 Primary Insurance: MEDICARE A & B Anticipated DC Date: Planned Disposition: Home : DCP follow-up note: CM RECEIVED OXYGEN TESTING, PT WAS 96% ON ROOM AIR AT REST, 95% ON ROOM AIR DURING EXERTION. PT DID NOT QUALIFY FOR HOME AND PORTABLE OXYGEN. PT PLANS TO DISCHARGE HOME WITH SPOUSE WITH NO ANTICIPATED NEEDS AT THIS TIME. CM TO FOLLOW AND ASSIST NEEDED. Darnell Stewart CASE BRADY DCP- Discharge Planning Updated by [email or web address]: Valentine Dickson on 04/08/19 5:[address] Patient Name: JACINDA HARPER Admission Status: Elective Accout number: [id number] Admission Date: 04-07-2019 : 1945 Admission Diagnosis: Attending: YULY SIDDIQI Current LOS: 1 Anticipated DC Date: Planned Disposition: Home Primary Insurance: MEDICARE A & B Discharge Planning Comments: CM met with patient to complete initial dc planning assessment. CM educated patient on the CM role and verbal consent given by patient to complete assessment. Patient lives at home with her where she is independent with her care. At discharge patient plans to return home and feels this is a safe discharge. CM discussed availability of home health, rehab services, and medical equipment. Her daughter will be her route salesman and driver home. Patient has a nebulizer ( can't remember provider) Patient denied known discharge needs at this time. CM will continue to follow and will assist as needed with dc plans/needs. Job Press Operator: Valentine Dickson DCPIA - Discharge Planning Initial Assessment Updated by [email or web address]: Valentine Dickson on 04/08/19 6:48 pm * Is the patient Alert and Oriented? Yes * How many steps to enter\exit or inside your home? * PCP KWASI * Pharmacy [facility] * Preadmission Environment Home with Family * ADLs Independent * Equipment Nebulizer * List name and contact numbers for known caregivers / representatives who currently or will assist patient after discharge: ECHO HARPER - DAUGHTER - [phone], * Verbal permission to speak to the caregivers and representatives has been obtained from the patient. Yes * Community resources currently utilized None * Additional services required to return to the preadmission environment? No * Can the patient safely return to the preadmission environment? Yes * Has this patient been hospitalized within the prior 30 days at any hospital? No Coverage Notice Reviewer: [email or web address] Corin Villa Notice Issued Date-Time: 04/14/2019 16:44 Notice Type: IM Discharge Notice Notice Delivered To: Patient Relationship to Patient: Tunnel Man Name: Delivery Method: HAND - Hand Delivered Lucy Days: Prior Verbal Notification: Recipient Understood Notice: Yes Recipient Signature: Yes Med Rec Note Co-signed by Attending: Coverage Notice Comment: Last DP export: 04/11/19 3:03 Patient Name: JACINDA HARPER Page [id number] at 1646 All edits/amendments must be made on the electronic document DICTATION DATE: 04/14/191645 NURSE FIRST ASSIST: LISA 04/14/191645 RPT#: [id number] DC DATE: STATUS: ADM IN [facility] [address] [place] [address] END OF REPORT
--- NOTE | 2019-04-14 17:17 | NUR ---
ALERT AND ORIENTED X4. SITTING UP IN CHAIR. DISCHARGE INSTRUCTIONS GIVEN VERBALLY AND WRITTEN. DISCHARGE PAPERS SIGNED ON CHART. DC LT FA IV TIP INTACT. ESCORT TO RIDE VIA WHEELCHAIR. REMAINS FREE FROM INJURY.
--- NOTE | 2019-04-14 17:36 | MORECARE ---
CASE MANAGEMENT DISCHARGE SUMMARY PATIENT: JACINDA HARPER UNIT: [id number] ADM DATE: 04/07/19 AGE: 74 : [birth year] SEX: F ROOM/BED: D.6709 AUTHOR: MARIA LDOC PHYSICIAN: REFERRING PHYSICIAN: YULY SIDDIQI MD DATE OF SERVICE: 04/14/19 Discharge Plan Patient Name: JACINDA HARPER Facility: [facility]:[place] : 1945 Planned Disposition: Home Anticipated Discharge Date: 04/14/19 Discharge Date: 04/14/2019 Expected LOS: 7 Initial Reviewer: [email or web address] Initial Review Date: 04/08/2019 Generated: 04/14/19 6:36 pm Comments DCP- Discharge Planning Updated by [email or web address]: Shira Villa on 04/14/19 3:[address] Patient Name: JACINDA HARPER Encounter No: [id number] : 1945 Primary Insurance: MEDICARE A & B Anticipated DC Date: Planned Disposition: Home External Planned Provider: : DCP follow-up note: Patient and family in agreement with discharge plan. No changes to plan. Case management will follow and assist as needed. Shira Villa DCP- Discharge Planning Updated by [email or web address]: Darnell Stewart on 04/11/19 2:[address] Patient Name: JACINDA HARPER Encounter No: [id number] : 1945 Primary Insurance: MEDICARE A & B Anticipated DC Date: Planned Disposition: Home : DCP follow-up note: CM RECEIVED OXYGEN TESTING, PT WAS 96% ON ROOM AIR AT REST, 95% ON ROOM AIR DURING EXERTION. PT DID NOT QUALIFY FOR HOME AND PORTABLE OXYGEN. PT PLANS TO DISCHARGE HOME WITH SPOUSE WITH NO ANTICIPATED NEEDS AT THIS TIME. CM TO FOLLOW AND ASSIST NEEDED. MANDI Sánchez DCP- Discharge Planning Updated by [email or web address]: Valentine Dickson on 04/08/19 5:[address] Patient Name: JACINDA HARPER Admission Status: Elective Accout number: [id number] Admission Date: 04-07-2019 : 1945 Admission Diagnosis: Attending: YULY SIDDIQI Current LOS: 1 Anticipated DC Date: Planned Disposition: Home Primary Insurance: MEDICARE A & B Discharge Planning Comments: CM met with patient to complete initial dc planning assessment. CM educated patient on the CM role and verbal consent given by patient to complete assessment. Patient lives at home with her where she is independent with her care. At discharge patient plans to return home and feels this is a safe discharge. CM discussed availability of home health, rehab services, and medical equipment. Her daughter will be her drive away driver home. Patient has a nebulizer ( can't remember provider) Patient denied known discharge needs at this time. CM will continue to follow and will assist as needed with dc plans/needs. Instrumentation And Control Technician: Valentine Dickson DCPIA - Discharge Planning Initial Assessment Updated by [email or web address]: Valentine Dickson on 04/08/19 6:48 pm * Is the patient Alert and Oriented? Yes * How many steps to enter\exit or inside your home? * PCP KWASI * Pharmacy [facility] [address] * Preadmission Environment Home with Family * ADLs Independent * Equipment Nebulizer * List name and contact numbers for known caregivers / representatives who currently or will assist patient after discharge: ECHO HARPER - DAUGHTER - [phone], * Verbal permission to speak to the caregivers and representatives has been obtained from the patient. Yes * Community resources currently utilized None * Additional services required to return to the preadmission environment? No * Can the patient safely return to the preadmission environment? Yes * Has this patient been hospitalized within the prior 30 days at any hospital? No Coverage Notice Reviewer: [email or web address] Corin Villa Notice Issued Date-Time: 04/14/2019 16:44 Notice Type: IM Discharge Notice Notice Delivered To: Patient Relationship to Patient: Cupola Liner Helper Name: Delivery Method: HAND - Hand Delivered Lucy Days: Prior Verbal Notification: Recipient Understood Notice: Yes Recipient Signature: Yes Med Rec Note Co-signed by Attending: Coverage Notice Comment: Last DP export: 04/14/19 3:46 Patient Name: JACINDA HARPER Page [phone] at 7977 All edits/amendments must be made on the electronic document DICTATION DATE: 04/14/191735 EXECUTIVE VICE PRESIDENT BUSINESS DEVELOPMENT: LISA 04/14/191735 RPT#: [id number] DC DATE:04/14/19 STATUS: DIS IN [facility] [address] [place] [address] END OF REPORT
[2019-04-15 16:08] LABS: FUNGUS MYCOLOGY CULTURE Preliminary report (())
--- NOTE | 2019-04-15 17:02 | EC ---
PATIENT:JACINDA HARPER DATE OF SERVICE: 04/07/19 SEX: F MEDICAL RECORD: [id number] DATE OF : [birth year] LOCATION:D. D.211 AGE OF PATIENT: 74 ADMISSION DATE: 04/07/19 REFERRING PHYSICIAN: INTERPRETING PHYSICIAN: AWILDA MULLER MD ECHOCARDIOGRAM REPORT ECHO CHARGES 4 ECHO COMPLETE Date: 04/07/19 CLINICAL DIAGNOSIS: CHF ECHOCARDIOGRAPHIC MEASUREMENTS (adult normal given) AC root (d.<3.7cm) 3.8 cm LV Septum d (<1.2 cm> 1.2 cm Valve Excursion 1.7 cm LV Septum (systole) 1.6 cm Left Atria (s.<4.0cm> 4.3 cm LVPW d(<1.2cm) 1.5 cm RV (d.<2.3cm) 2.5 cm LVPW (sytole) 2.1 cm LV diastole(<5.6CM) 7.6 cm MV E-F(>70mm/sec) cm LV systole 5.4 cm LVOT Diameter 2.0 cm MV exc.(>10mm) cm Est.ejection fraction (50-75%) % DOPPLER: LVIT cm/sec A 139 cm/sec E 94.0 cm/sec LA cm/sec RVSP 35.4 mmHg LVOT 100 cm/sec AOP1/2T m/s Asc. Ao 179 cm/sec RVOT 58.0 cm/sec RA cm/sec PA 95.0 cm/sec AV Gradient Peak 13.0 mmHg AV Mean 7.0 mmHg AV Area 1.9 cm MV Gradient Peak 10.3 mmHg MV Mean 2.3 mmHg MV Area cm COMMENTS: OP - HC Course Instructor: 1 HUGH CARROE Toppiece Chopper: 1 Dr. Muller TAPE# PACS Pericardial Effusion N DATE OF SERVICE: FINDINGS: 1. Left ventricular chamber size is moderately dilated. Left ventricular systolic function is moderately reduced at 30% to 35%. 2. Left atrium is enlarged at 4.3 cm. Right atrium and right ventricular chamber sizes are within normal limits. 3. Valvular structures have normal structure and motion. 4. Doppler interrogation reveals moderate aortic insufficiency, moderate tricuspid regurgitation, no other valvular insufficiency or stenosis. Pulmonary ECHOCARDIOGRAM REPORT [id number] JACINDA HARPER systolic pressure is estimated at 35 mmHg. 5. No evidence of pericardial effusion or left ventricular thrombus. TRANSINT:[id number] Voice Confirmation ID: [id number] DOCUMENT ID: [id number] AWILDA MULLER MD at 1702 CC: [id number] DICTATION DATE: 04/08/19 1053 [employer] FOUNDER: 04/08/19 1105 DIS IN 04/14/19 [facility] [address] [id number]
== END 2019-04-14 17:18 | disposition home or self-care (01) | DRG 208 ==
LOC: EDBD 04:39 → D.ER 04:39 → D.ICU 06:55 → D.M2 04-10 00:35 → D.ICU 04-10 12:18 → D.M2 04-10 12:18
PROVIDERS: Emergency Medicine; Family Medicine; Family Medicine Adult Medicine; Internal Medicine Pulmonary Disease; ADMIT Internal Medicine Nephrology; ATTEND Internal Medicine Nephrology
PROC: 5A1945Z Respiratory Ventilation, 24-96 Consecutive Hours (ICD-10-PCS; principal; 2019-04-07)
PROC: 0BH17EZ Insertion of Endotracheal Airway into Trachea, Via Natural or Artificial Opening (ICD-10-PCS; 2019-04-07)
PROC: 0B9B8ZZ Drainage of Left Lower Lobe Bronchus, Via Natural or Artificial Opening Endoscopic (ICD-10-PCS; 2019-04-07)
PROC: 0B9D8ZZ Drainage of Right Middle Lung Lobe, Via Natural or Artificial Opening Endoscopic (ICD-10-PCS; 2019-04-07)
DX: J96.21 Acute and chronic respiratory failure with hypoxia (principal); A41.9 Sepsis, unspecified organism; J18.9 Pneumonia, unspecified organism; I50.33 Acute on chronic diastolic (congestive) heart failure; R65.21 Severe sepsis with septic shock; E87.2 Acidosis; J44.1 Chronic obstructive pulmonary disease with (acute) exacerbation; N17.9 Acute kidney failure, unspecified; J44.0 Chronic obstructive pulmonary disease with (acute) lower respiratory infection; J96.22 Acute and chronic respiratory failure with hypercapnia; E11.65 Type 2 diabetes mellitus with hyperglycemia; I11.0 Hypertensive heart disease with heart failure; D50.9 Iron deficiency anemia, unspecified; R79.89 Other specified abnormal findings of blood chemistry; E78.5 Hyperlipidemia, unspecified; K21.9 Gastro-esophageal reflux disease without esophagitis; E55.9 Vitamin D deficiency, unspecified; I25.10 Atherosclerotic heart disease of native coronary artery without angina pectoris

== ENCOUNTER 2020-01-02 02:34 | Observation (INO) | payer MEDICARE, OTHER ==
[~2020-01-02] VITALS: Ht 170.2 cm; Wt 84.1 kg
--- NOTE | ~2020-01-02 | HEMODYNAMI ---
PATIENT:JACINDA HARPER MEDICAL RECORD: [id number] : [birth year] LOCATION:[facility] D[facility] ADMISSION DATE: 01/02/20 Generatedon:01/02/202016:18 Patient name: JACINDA HARPER Patient #: [id number] : 1945 Date of study: 01/02/2020 Page: Of Hemodynamic Procedure Report Patient Data Patient Demographics Procedure consent was obtained First Name: JACINDA Gender: Female Last Name: LEROY : 1945 [facility] Initial: K Age: 74 year(s) Patient #: [id number] Race: SSN: [id number] Additional ID: [id number] Contact details Address: [address] [place] [address] State: [place] City: [facility] Zip code: [address] Past Medical History Allergies Allergen Reaction Date Comments Reported Other allergy 01/02/2020 pcn/meperidine Admission Admission Data Admission Date: 01/02/2020 Admission Time: 3:48 Arrival Date: 01/02/2020 Arrival Time: 0:00 Admit Source: Emergency HIC #: [id number] department Room #: [facility] Height (in.): 66.93 BSA: 2.06 (m2) Height (cm.): 170 BMI: 32.87 (kg/m2) Weight (lbs.): 209.44 Weight (kg.): 95 Lab Results Lab Result Date: 01/02/2020 Lab Result Time: 0:00 Biochemistry Name Units Result Min Max BUN mg/dl 28 --(----)-* 7 18 CK-MB ng/ml 1.4 --(-*--)-- 0 3.6 Creatinine mg/dl 1 --(--*-)-- 0.6 1.3 eGFR ml/min 57 *-(----)-- 90 120 NONAFRICAN Troponin l ng/ml 0.017 --(-*--)-- 0 0.06 CBC Name Units Result Min Max Hematocrit % 45.9 --(-*--)-- 42 54 Hemoglobin g/dl 14.8 --(-*--)-- 13.5 17.5 Procedure Procedure Types Cath Procedure Diagnostic Procedure [facility] w/Coronaries Aortic Root Angiography Sedation Charges Moderate Sedation up to 15 minutes Procedure Description Procedure Date Procedure Date: 01/02/2020 Procedure Start Time: 15:58 Procedure End Time: 16:16 Procedure Staff Name Function Edilson Varma MD Performing Physician Brittaney Garibay RN Nurse Elen Myers RT Monitor Kristan Cadet RT Scrub Indication Chest pain Procedure Data Cath Procedure Fluoroscopy Diagnostic fluoroscopy Total fluoroscopy Time: 3.2 time: 3.2 min min Diagnostic fluoroscopy Total fluoroscopy dose: dose: 1397 mGy 1397 mGy Contrast Material Contrast Material Type Amount (ml) Isovue 300 121 Entry Location Entry Primary Successful Side Size Upsize Upsize Entry Closure Succes sful Closure Location (Fr) 1 (Fr) 2 (Fr) Remarks Device Remarks Femoral Right 5 Fr Exoseal artery Estimated blood loss: 5 ml Diagnostic catheters Device Type Used For End Catheter Placement MULTIPACK JL 4.0 5Fr Left Coronary catheter Angiography DIAGNOSTIC JL 5 5Fr Left Coronary catheter ([id number]) Angiography DIAGNOSTIC JL 6 5Fr Left Coronary catheter ([id number]) Angiography MULTIPACK 3DRC 5Fr Right Coronary catheter Angiography MULTIPACK Pigtail 5 Fr LV Angiography catheter Procedure Complications No complications Procedure Medications Medication Administration Route Dosage 0.9% NaCl I.V. 100 ml/hr Oxygen etCO2 Nasal cannula 2 l/min Lidocaine 2% added to field 20 Heparin Flush Bag added to field 2 bags (1000units/500ml NS) Versed I.V. 2 mg Fentanyl I.V. 50 mcg Hemodynamics Rest BSA: 2.06 (m2) HGB: 14.8 (g/dl) O2 Consumption: Estimated: 184.8 (ml/min) O2 Con sumption indexed: Estimated:89.71 (ml/min/m) Heart Rate: 66 (bpm) Pressure Samples Time Site Value (mmHg) Purpose Heart Use Rate(bpm) 16:06 LV 141/16,19 Snapshot 72 Gradients Valve Time Site Site Mean SEP/DFP Peak To Heart Use 1 2 (mmHg) (sec/min) Peak Rate (mmHg) (bpm) Aortic 16:06 LV AO 68 Aortic 16:07 LV AO 67 Snapshots Pre Cath Intra NCS Post Cath Vital Signs Time Heart Resp SPO2 etCO2 NIBP Rhythm Pain Sedation Rate (ipm) (%) (mmHg) (mmHg) Status Level (bpm) 15:43:47 64 14 97 26.5 138/48(94) NSR 0 (11) 10(A) , No pain 15:48:13 67 22 96 23.9 90/41(62) NSR 0 (11) 10(A) , No pain 15:52:32 63 15 97 23.1 89/44(72) NSR 0 (11) 10(A) , No pain 15:57:30 63 18 99 25 Measuring NSR 0 (11) 10(A) , No pain 15:57:43 65 16 99 22.4 104/47(82) NSR 0 (11) 10(A) , No pain 16:02:09 61 15 97 15.6 112/40(84) NSR 0 (11) 9(A) , No pain 16:06:31 68 13 98 28.4 95/46(75) NSR 0 (11) 10(A) , No pain 16:10:51 69 13 98 29.1 112/46(86) NSR 0 (11) 10(A) , No pain 16:15:16 74 15 96 19.4 110/46(75) NSR 0 (11) 10(A) , No pain Medications Time Medication Route Dose Verified Delivered Reason Notes Eff ectiveness by by 15:42:53 0.9% NaCl I.V. 100 Edilson Quispe used for ml/hr [facility] procedure MD DIAZ 15:42:59 Oxygen etCO2 2 dEilson Quispe used for Nasal l/min [facility] procedure cannula MD DIAZ 15:43:04 Lidocaine 2% added 20ml Edilson Waggoner for local to vial [facility] anesthetic field MD BARROS 15:43:08 Heparin Flush added 2 Edilson Waggoner used for Bag to bags [facility] procedure (1000units/500ml field MD BARROS NS) 15:59:32 Versed I.V. 2 mg Edilson Quispe for [facility] sedation MD DIAZ 15:59:59 Fentanyl I.V. [address] Ed[address] Quispe for mcg [facility] sedation MD piano instructor Log Time Note 14:53:58 Diagnostic Cath Status : Elective 14:55:07 Informed consent obtained and on chart 14:57:03 Arrival Date: 01/02/2020 12:00:00 AM 14:57:06 Admit Source: Emergency department 14:57:44 Patient Height : 66.93 inches 14:57:49 Patient Weight : 209.44 lbs 15:30:24 Sariah Spangler RT(R) sent for patient. Start room use. 15:42:25 Vital chart was started 15:42:53 0.9% NaCl 100 ml/hr I.V. was administered by Brittaney Garibay RN; used for procedure; Verbal order read back and verified. 15:42:59 Oxygen 2 l/min etCO2 Nasal cannula was administered by Brittaney Garibay RN; used for procedure; Verbal order read back and verified. 15:43:04 Lidocaine 2% 20ml vial added to field was administered by Edilson Varma MD; for local anesthetic; Verbal order read back and verified. 15:43:08 Patient received from [facility] [employer] II to CCL 1 Alert and oriented. Tansferred to table in Supine position. 15:43:08 Heparin Flush Bag (1000units/500ml NS) 2 bags added to field was administered by Edilson Varma MD; used for procedure; Verbal order read back and verified. 15:43:17 Procedure Status Urgent Heart Cath (IP). 15:43:29 Time tracking: Regular hours (M-F 7:00 - 5:00) 15:43:33 Warm blankets applied, and piero hugger turned on for patient comfort. 15:43:34 Correct patient and procedure confirmed by team. 15:43:35 ECG and BP/O2 sat monitors applied to patient. 15:44:38 Indication : Chest pain 15:45:35 Baseline sample Acquired. 15:45:52 Rhythm: sinus rhythm 15:46:07 Full Disclosure recording started 15:46:15 H&P Date Dictated: 01/02/2020 Within 30 days and on chart., ER History on chart.. 15:46:17 Pre-procedure instructions explained to patient. 15:46:18 Pre-op teaching completed and patient verbalized understanding. 15:46:27 Family in patients room. 15:46:29 Patient NPO since Midnight. 15:47:41 Patient allergic to Other allergypcn/meperidine 15:47:46 Is the patient allergic to Iodine/contrast media? No. 15:48:01 Is patient on blood thinner?No 15:48:21 Patient diabetic? No. 15:48:24 ----Pre-sedation anethsthesia assessment.---- 15:48:30 Previous problem with sedation/anesthesia? No ? 15:48:32 Snore? Yes 15:48:34 Sleep apnea? No 15:48:37 Deviated septum? Unknown 15:48:39 Opens mouth fully? Yes 15:48:44 Sticks out tongue? Yes 15:48:49 Airway obstruction? No ? 15:48:52 Dentures? Unknown ? 15:49:04 Pre procedure: right dorsailis pedis pulse 1+ Palpable, but thready & weak; easily obliterated 15:49:21 IV patent on arrival in left forearm with 0.9% NaCl at KVO. 15:50:26 Lab Result : Creatinine 1 mg/dl 15:50:26 Lab Result : BUN 28 mg/dl 15:50:26 Lab Result : CK-MB 1.4 ng/ml 15:50:26 Lab Result : eGFR NONAFRICAN 57 ml/min 15:50:26 Lab Result : Troponin l 0.017 ng/ml 15:50:26 Lab Result : Hemoglobin 14.8 g/dl 15:50:26 Lab Result : Hematocrit 45.9 % 15:50:32 Lab results completed and on chart. 15:50:39 Stress Test: no; N/A ? 15:50:45 Right groin area was prepped with chlora-prep and draped in sterile fashion 15:50:47 Alarms reviewed by R. N. 15:50:48 Sharps counted by scrub and verified by R.N. 15:50:54 Use device set Femoral Dx 15:50:56 ACIST Syringe (70467) opened to sterile field. 15:50:56 Bag Decanter (2002S) opened to sterile field. 15:50:57 Medline Cath Pack ([id number]) opened to sterile field. 15:50:59 ACIST Hand Control (51897) opened to sterile field. 15:51:02 ACIST Manifold (25891) opened to sterile field. 15:51:03 DIAGNOSTIC Multipack 5Fr catheter set ([id number]) opened to sterile field. 15:51:04 Tegaderm 4 x 4 (1626W) opened to sterile field. 15:51:05 SHEATH 5FR Wink (IOU303) opened to sterile field. 15:51:06 EMERALD Guide Wire (552-457) opened to sterile field. 15:51:17 Zero performed for pressure channel P1 15:55:35 Zero performed for pressure channel P1 15:57:50 Zero performed for pressure channel P1 15:58:06 Physician arrived 15:58:06 --------ALL STOP TIME OUT------ 15:58:07 Final Timeout: patient, procedure, and site verified with staff and physician. All members of the team are in agreement. 15:58:10 Right groin site verified by team. 15:58:15 Fire Safety Assessment: A--An alcohol-based skin anteseptic being used preoperatively., C--Open oxygen or nitrous oxide is being used., D--An ESU, laser, or fiber-optic light is being used. 15:58:21 Physical assessment completed. ASA score P 2 - A patient with mild systemic disease as per Edilson Varma MD. 15:58:27 3a) 45-59 Moderately reduced kidney function. 15:58:32 Maximum allowable contrast dose (3.7 X eGFR X 0.75)158 ml. 15:58:39 Sedation plan: IV Moderate Sedation Medication:Versed, Fentanyl 15:58:47 Procedure started. 15:58:52 Local anesthetic to right femoral artery with Lidocaine 2% by Edilson Varma MD.INITIAL ACCESS ONLY 15:59:08 A 5 Fr sheath was inserted into the Right Femoral artery 15:59:17 A MULTIPACK JL 4.0 5Fr catheter was advanced over the wire and used for Left Coronary Angiography. 15:59:23 Catheter removed. 15:59:32 Versed 2 mg I.V. was administered by Brittaney Garibay RN; for sedation; Verbal order read back and verified. 15:59:46 A DIAGNOSTIC JL 5 5Fr catheter ([id number]) was advanced over the wire and used for Left Coronary Angiography. 15:59:59 Fentanyl 50 mcg I.V. was administered by Brittaney Garibay RN; for sedation; Verbal order read back and verified. 16:00:36 Catheter removed. 16:01:08 A DIAGNOSTIC JL 6 5Fr catheter ([id number]) was advanced over the wire and used for Left Coronary Angiography. 16:02:35 LCA angiography performed. 16:02:41 Injector settings: Ml/sec: 3, Volume: 6, 16:03:26 Catheter removed. 16:03:34 A MULTIPACK 3DRC 5Fr catheter was advanced over the wire and used for Right Coronary Angiography. 16:04:43 RCA angiography performed. 16:05:28 Catheter removed. 16:05:34 A MULTIPACK Pigtail 5 Fr catheter was advanced over the wire and used for LV Angiography. 16:06:27 LV gram done using AGUILERA 16:06:36 Injector settings: Ml/sec: 5, Volume: 15, 16:07:32 Injector settings: Ml/sec: 10, Volume: 30, 16:08:06 LV hemodynamics recorded. 16:08:17 Aortic Root visualized 16:08:24 Injector settings: Ml/sec: 12, Volume: 36, 16:08:52 EF : 30 % 16:08:58 Catheter removed. 16:09:10 EXOSEAL 5Fr (EX500) opened to sterile field. 16:09:28 Sheath removed intact; hemostasis achieved with Exoseal to the Right Femoral artery. 16:09:36 Contrast amount:Isovue 300 121ml. 16:09:43 Fluoroscopy time 03.20 minutes. 16:09:49 Fluoroscopy dose: 1397 mGy 16:09:49 Flurop Dose total: 1397 16:09:59 Dose Area Product 48484 mGy/cm. 16:10:05 Maximum allowable dose exceeded? No. 16:10:07 Sharps counted by scrub and verified by R.N. 16:10:08 Procedure ended.(Physican Out) 16:10:11 Insertion/operative site no bleeding no hematoma. 16:10:15 Post-op/insertion site Right Femoral artery dressed using a 4 x 4 and Tegaderm. 16:10:21 Post-procedure physical assessment completed. ASA score P 2 - A patient with mild systemic disease as per Edilson Varma MD. 16:10:26 Post procedure rhythm: unchanged. 16:13:25 Risk of Mortality: 0.1 16:13:28 Risk of blood transfusion: 0.1 16:13:34 Risk of JESSICA: 1.6 16:13:47 Estimated blood loss: 5 ml 16:13:48 Post procedure instruction explained to patient.Patient verbalizes understanding. 16:13:49 Patient needs reinforcement of post procedure teaching. 16:14:11 Procedure type changed to Cath procedure, Diagnostic procedure, LHC, C w/Coronaries, Aortic Root Angiography, Sedation Charges, Moderate Sedation up to 15 minutes 16:14:13 Procedure and supply charges have been captured, reviewed, submitted and are correct. 16:16:26 Procedure Complication : No complications 16:16:29 Vital chart was stopped 16:16:36 [facility] Findings: mild to moderate CAD (<70%) 16:16:41 Operative report dictated upon procedure completion. 16:16:42 See physician's report for complete and final results. 16:16:45 Report given to [facility] II. 16:16:49 Patient transfered to Med II with Bed. 16:16:53 Procedure ended. 16:16:53 Full Disclosure recording stopped 16:16:56 End room use (Document Last) Device Usage Item Name Manufacture Quantity Catalog Hospital Part Current Minimal L ot# / Number Charge Number Stock Stock Serial# Code ACIST Acist 1 34102 738036 752007 632783 20 Syringe Medical (61590) Systems Inc Bag Microtek 1 2001S 286749 30545 550591 5 Decanter Medical Inc. (2001S) Medline Medline 1 [id number] 498588 31169 598827 5 Cath Pack ([id number]) ACIST Hand Acist 1 78456 433414 604966 439450 5 Control Medical (00871) Systems Inc ACIST Acist 1 24738 460806 756851 790473 5 Manifold Medical (77068) Systems Inc DIAGNOSTIC Cardinal 1 [id number] 748802 91746 386455 30 MultipWatchfinder 5Fr catheter set (EF4287) Tegaderm 4 3M 1 1626W 018784 129168 808002 5 x 4 (1626W) SHEATH 5FR Terumo 1 MSX156 723457 127741 558523 5 Wink (WBS471) EMERALD Cardinal 1 502-455 159995 976023 282803 5 Guide Wire [facility] (502-455) MULTIPACK Cardinal 1 960243 5 JL 4.0 5Fr Health catheter DIAGNOSTIC Cardinal 1 [id number] 352142 566672 767576 5 JL 5 5Fr Health catheter (567716C) DIAGNOSTIC Cardinal 1 [id number] 153290 136164 962445 5 JL 6 5Fr Health catheter (590723I) MULTIPACK Cardinal 1 846081 5 3DRC 5Fr Health catheter MULTIPACK Cardinal 1 323655 5 Pigtail 5 Health Fr catheter EXOSEAL 5Fr Cardinal 1 EX500 657398 945386 345500 10 (EX500) Health Signature Audit [place] Stage Time Signature Unsigned Intra-Procedure 01/02/2020 Elen 4:17:16 PM Louis RT(R) (CV) Intra-Procedure 01/02/2020 Brittaney Garibay 4:17:51 PM RN Intra-Procedure 01/02/2020 Edilson Fenton 4:18:17 PM Jimenez BARROS [address] [place] [address]
[~2020-01-02 02:34] MED LIST: ALBUTEROL SULF8.5 GM INH; ALENDRONATE SODI5 MG PO; BAYER CHEWABLE81 MG PO; COREG 3.1253.125 MG PO; ENTRESTO 49 MG1 EACH PO; FARXIGA10 MG PO; FISH OIL 1,0001 CA1 PO; FUROSEMIDE40 MG PO; IPRAT-ALBUT 0.5-3 ML UPD; K-TAB10 MEQ PO; LIPITOR10 MG PO; MIRALAX17 GM PO; PEPCID AC20 MG PO; PREDNISONE10 MG PO; PROTONIX40 MG PO; SINGULAIR10 MG PO; SYMBICORT 16010.2 GM INH; TOUJEO SOL300 UNIT/1 SC; VIBRAMYCIN 100100 MG PO; VITAMIN D5000 UNIT PO
--- NOTE | 2020-01-02 02:53 | NUR ---
PER EDP, IN ROOM, GIVE SL NITRO PER EMAR. PT C/O 05/31 CHEST PAIN ACROSS CHEST. PAIN IS DESCRIBED BURNING.
[2020-01-02 03:11] LABS: APTT 32.3 SECONDS (22.8-39.4); INR 1.01 (0.85-1.17); PROTIME 13.2 SECONDS (11.6-15.0)
[2020-01-02 03:16] LABS: CALC OSMOLALITY 292 mosm/kg (275-300); CALCIUM 9.6 mg/dL (8.5-10.1); CARBON DIOXIDE 29.1 mmol/L (21.0-32.0); CHLORIDE - SERUM 105 mmol/L (98-107); POTASSIUM - SERUM 4.4 mmol/L (3.5-5.1); SODIUM 141 mmol/L (136-145); UREA NITROGEN 28 mg/dL (7-18); eGFR NON AFRICAN AMERICAN 57 mL/min (90-120)
[2020-01-02 03:25] LABS: GLUCOSE 199 mg/dL (74-106)
[2020-01-02 03:28] LABS: BASOPHILS 0.4 % (0-2); EOSINOPHILS 1.6 % (0-7); HEMATOCRIT 45.9 % (36.0-48.0); HEMOGLOBIN 14.8 g/dL (12-16); IMMATURE GRANULOCYTES 0.1 % (0-5); LYMPHOCYTES 27.9 % (15-50); MCH 31.2 pg (26.0-34.0); MCHC 32.2 g/dL (31.0-37.0); MCV 96.8 fL (80.0-100.0); MEAN PLATELET VOLUME 11.6 fL (7.4-10.4); MONOCYTES 9.8 % (2-11); NEUTROPHILS 60.2 % (40-80); RBC 4.74 10x6/uL (4.00-5.40); RDW 15.6 % (11.5-14.5); WBC 6.8 10x3/uL (4.8-10.8)
[2020-01-02 03:32] LABS: ALBUMIN 3.9 g/dL (3.4-5.0); ALKALINE PHOSPHATASE 70 U/L (30-120); ALT (SGPT) 20 U/L (10-68); BILIRUBIN - TOTAL 0.87 mg/dL (0.2-1.3); CKMB 1.4 U/L (0.0-3.6); CREATINE KINASE 95 UL (21-215); MAGNESIUM - SERUM 2.1 mg/dL (1.8-2.4); PROTEIN - SERUM 7.4 g/dL (6.4-8.2)
[2020-01-02 03:33] LABS: PLATELET COUNT 200 10x3/uL (130-400); TROPONIN-I < 0.017 ng/mL (0.000-0.060)
[2020-01-02 06:30] VITALS: BP 111/45
[2020-01-02 07:38] VITALS: BP 103/43
--- NOTE | 2020-01-02 07:38 | NUR ---
UPDATED PT ON DELAY IN TRANSFER TO FLOOR BED. PT VOICED UNDERSTANDING. DENIES FURTHER NEEDS AT THIS TIME.
[2020-01-02 10:15] LABS: CKMB 1.6 U/L (0.0-3.6); CREATINE KINASE 78 UL (21-215)
[2020-01-02 10:16] LABS: TROPONIN-I < 0.017 ng/mL (0.000-0.060)
--- NOTE | 2020-01-02 10:36 | NUR ---
CALLED REPORT TO BRAYDEN AT THIS TIME.
[2020-01-02 11:24] VITALS: BP 134/51
[2020-01-02 14:13] LABS: CHOL - HDL RATIO 3.1 ratio (2.3-4.1); LDL-HDL RATIO 1.8 ratio (1.5-3.5)
[2020-01-02 15:00] VITALS: BP 128/68; Ht 170.2 cm; Wt 84.1 kg
[2020-01-02 15:17] VITALS: BP 118/39
[2020-01-02 15:57] LABS: CKMB 1.9 U/L (0.0-3.6); CREATINE KINASE 77 UL (21-215)
[2020-01-02 15:59] LABS: TROPONIN-I < 0.017 ng/mL (0.000-0.060)
[2020-01-02 18:31] VITALS: BP 111/47
--- NOTE | 2020-01-02 19:48 | NUR ---
PT IS RESTING WITH EYES CLOSED RESP EVEN AND UNLABORED BED LOW AND LOCKED CALL LIGHT IS IN REACH
[2020-01-03 06:57] LABS: BASOPHILS 0.4 % (0-2); EOSINOPHILS 3.9 % (0-7); HEMATOCRIT 41.3 % (36.0-48.0); HEMOGLOBIN 12.9 g/dL (12-16); IMMATURE GRANULOCYTES 0.6 % (0-5); LYMPHOCYTES 16.7 % (15-50); MCHC 31.2 g/dL (31.0-37.0); MEAN PLATELET VOLUME 11.6 fL (7.4-10.4); MONOCYTES 9.9 % (2-11); NEUTROPHILS 68.5 % (40-80); PLATELET COUNT 184 10x3/uL (130-400); RBC 4.16 10x6/uL (4.00-5.40); WBC 5.3 10x3/uL (4.8-10.8)
[2020-01-03 06:58] LABS: MCV 99.3 fL (80.0-100.0)
[2020-01-03 07:38] LABS: CALCIUM 8.9 mg/dL (8.5-10.1); CARBON DIOXIDE 27.2 mmol/L (21.0-32.0); CREATININE - SERUM 0.8 mg/dL (0.6-1.3); MAGNESIUM - SERUM 2.1 mg/dL (1.8-2.4); PHOSPHOROUS 3.1 mg/dL (2.5-4.9); POTASSIUM - SERUM 4.2 mmol/L (3.5-5.1)
[2020-01-03 08:49] VITALS: BP 120/43
--- NOTE | 2020-01-03 12:03 | NUR ---
PT DISCHARGED HOME VIA WHEELCHAIR WITH FAMILY. PIV REMOVED WITH CATHETER TIP FULLY INTACT. PT SIGNED PROPER DISCHARGE AND REMOVED ALL VALUABLES FROM THE ROOM. TELEMETRY REMOVED AND RETURNED. PT SIGNED PROPER DISCHARGE INSTRUCTIONS AND REMOVED ALL VALUABLES FROM THE ROOM.
--- NOTE | 2020-01-06 11:44 | OP ---
PATIENT NAME: JACINDA HARPER MEDICAL RECORD: [id number] :45 LOCATION:D.M2 D.2127 ADMISSION DATE:01/02/20 SURGEON: JAY HAJI MD DATE OF OPERATION: 01/02/2020 PROCEDURE: Left heart catheterization, selective coronary angiography, plus aortic root injection, right femoral artery approach. CATHETERS: A 5-[place]izen [place] sheath, 5/4 left and right Jess, 5/4 pig. The procedure was well tolerated, the patient returned to posadas, sheath removed. ExoSeal device was placed. FINDINGS: Left ventriculography, this shows a marked anterior apical, true apical and inferoapical hypokinesis, EF reduced at 25-30%. Aortic root injection was performed, shows dilated aortic root with probable moderate AI. LEFT MAIN: Left main is free of disease. LAD: Area of previous stenting is widely patent with no evidence of restenosis. CIRCUMFLEX: Circumflex is a huge vessel, free of disease. RIGHT CORONARY ARTERY: Again, is larger than expected, given the size. CIRCUMFLEX: Free of disease. IMPRESSION: Moderate aortic insufficiency with cardiomyopathy in excess of coronary artery disease. We will add Aldactone to underlying meds and follow with repeat echo in 3 months to see if device therapy indicated. TRANSINT:[id number] Voice Confirmation ID: [id number] DOCUMENT ID: [id number] JAY HAJI MD at 1144 CC: [id number] DICTATION DATE: 01/02/20 1618 TELEVISION PARTS TESTER: 01/03/20 0154 DIS IN 01/03/20 [id number] [place] [address]
== END 2020-01-03 12:04 | disposition home or self-care (01) ==
LOC: D.ER 02:34 → D.M2 03:48 → OBSVTIME 03:48 → D.M2 01-03 12:04
PROVIDERS: Emergency Medicine; Family Medicine; Internal Medicine Interventional Cardiology; ADMIT Family Medicine; ATTEND Family Medicine
DX: I24.9 Acute ischemic heart disease, unspecified (principal); I25.10 Atherosclerotic heart disease of native coronary artery without angina pectoris; I25.5 Ischemic cardiomyopathy; I10 Essential (primary) hypertension; R07.9 Chest pain, unspecified; J44.9 Chronic obstructive pulmonary disease, unspecified; E11.65 Type 2 diabetes mellitus with hyperglycemia; I50.22 Chronic systolic (congestive) heart failure; K21.9 Gastro-esophageal reflux disease without esophagitis; E78.5 Hyperlipidemia, unspecified